=== PATIENT | female | born 1950 | race Caucasian/White ===

== ENCOUNTER 2018-12-07 13:30 | Outpatient (CLI) | payer MEDICARE ==
--- NOTE | 2018-12-07 15:53 | MRI ---
MRI OF LUMBAR SPINE PERFORMED WITHOUT CONTRAST ENHANCEMENT: History: Low back pain for the past few months. Pain going down to the left leg, also with some right foot numbness. FINDINGS: The vertebral bodies are normal in height. Generalized disc desiccation changes are present. There is marked disc narrowing at L5-S1. There is no significant periaortic adenopathy. A T2 hyperintense lesion involving the left kidney is statistically most likely a cyst. T12-L1: Unremarkable. L1-2: Degenerative facet changes without canal or foraminal stenosis. L2-3: No significant canal or foraminal stenosis. L3-4: The canal is mildly stenotic. This related to facet and ligamentous hypertrophic changes. No si gnificant foraminal narrowing. L4-5: There is a moderate degree of canal stenosis with some disc bulge and element of a right parace ntral protrusion, also contributing to the canal narrowing. There is some mild to moderate right fora aurora narrowing and mild left foraminal stenosis. L5-S1: No significant central canal stenosis. Degenerative facet changes are present without signific ant canal or foraminal narrowing. A left lateral annular disc tear is incidentally seen. IMPRESSION: 1. Mild to moderate degree of canal narrowing at L3-4 with a moderately severe canal stenosis at L4-5 , mainly related to chronic degenerative facet and ligamentous hypertrophic changes. There is some di sc bulging and a right paracentral to slightly more lateral disc protrusion and bilateral foraminal n arrowing. Other findings as discussed above. POS: TPC
== END 2018-12-07 13:31 | disposition home or self-care (01) ==
LOC: BICMRI 13:30
PROVIDERS: ATTEND Family Medicine
DX: M47.26 Other spondylosis with radiculopathy, lumbar region (principal); M48.061 Spinal stenosis, lumbar region without neurogenic claudication; M51.16 Intervertebral disc disorders with radiculopathy, lumbar region
CPT/HCPCS: 72148

== ENCOUNTER 2019-12-24 10:40 | Outpatient (CLI) | payer MEDICARE ==
--- NOTE | 2019-12-24 11:51 | MRI ---
MRI lumbar spine noncontrast: HISTORY: Low back pain, for many years. Patient has previous fall. Patient has had pain management but worseni ng symptoms, radiculopathy in the left leg COMPARISON: 12/07/2018 FINDINGS: Stable straightening of lumbar lordosis. Appropriate T1 marrow signal intensity of the lumbar vertebr a. Lumbar spine vertebral body height is maintained. No fracture. No significant STIR hyperintensity to suggest vertebral body edema or ligamentous injury Appropriate signal intensity paraspinal muscles. Bilateral parapelvic cyst along with left renal julia ical cysts. Conus medullaris terminates at the mid T12 level. T12-L1:Adequate disc hydration. No significant neural canal stenosis or significant neural foraminal narrowing L1-L2:Adequate disc hydration. Minimal loss of disc space height. Minimal broad-based disc bulge, wit hout significant central canal stenosis. Mild bilateral foraminal narrowing due to disc material L2-L3:Adequate disc hydration. No posterior disc abnormality. No significant central canal stenosis. Bilaterally the neural foramina are patent. L3-L4:Adequate disc hydration. Broad-based disc bulge, ligament flavum thickening and facet hypertrop hy result in moderate central canal stenosis. There is disc material encroaching upon bilateral subarticular zones. Mass effect without obscuration of bilateral traversing L4 nerve roots. Bilateral ly the neural foramina are patent. L4-L5:Desiccation without significant loss of disc space height. Broad-based disc bulge, ligament fla vum thickening and facet hypertrophy result in moderate central canal stenosis. Partial obscuration of bilateral traversing L5 nerve root secondary to disc material and to lesser extent posterior eleme nt hypertrophy. Moderate bilateral foraminal narrowing. L5-S1:Severe loss of disc space height. No significant central canal stenosis. Mild bilateral neural foraminal narrowing. IMPRESSION: 1. Trim change at L3-L4 with moderate central canal stenosis. Disc material encroaches upon bilateral subarticular zones. Mass effect upon bilateral traversing L4 nerve roots. 2. Partial obscuration of bilateral traversing L5 nerve root secondary to narrowing of the subarticul ar zone due to disc material and to lesser extent posterior elements hypertrophy.
--- NOTE | 2019-12-24 11:59 | RAD ---
XR Thoracic Spine 2 View HISTORY: Low back pain for years status post fall in the past. No recent injury as described. COMPARISON: None. FINDINGS: The vertebral bodies maintain normal height. Small osteophytes are seen along the course of the spine. Pedicles are intact. IMPRESSION: Arthritic changes of the spine.
--- NOTE | 2019-12-24 12:00 | RAD ---
XR Lumbar Spine Bending Min 4V HISTORY: Back pain for years status post fall. COMPARISON: None. FINDINGS: The bones appear demineralized. Vertebral bodies are normal in height. Mild disc narrowing is seen at L1-2 and moderate disc narrowing at L5-S1. Also mild disc narrowing is seen at L4-5. No abnormal motion in the flexion or extension views. IMPRESSION: Arthritic changes of the spine.
== END 2019-12-24 10:41 | disposition home or self-care (01) ==
LOC: TBSIIMAG 10:40
PROVIDERS: ATTEND Surgery
DX: M51.36 Other intervertebral disc degeneration, lumbar region (principal); M79.606 Pain in leg, unspecified; M25.559 Pain in unspecified hip; M46.96 Unspecified inflammatory spondylopathy, lumbar region; M46.94 Unspecified inflammatory spondylopathy, thoracic region; M48.061 Spinal stenosis, lumbar region without neurogenic claudication; R93.7 Abnormal findings on diagnostic imaging of other parts of musculoskeletal system
CPT/HCPCS: 72070; 72120; 72148

== ENCOUNTER 2020-03-24 07:05 | Outpatient (CLI) | payer MEDICARE, MEDICAID, OTHER ==
[2020-03-24 12:41] LABS: PTT 28.3 SEC (22.9-36.1); Prothrombin Time 12.8 sec (12.0-14.7)
[2020-03-24 12:49] LABS: Hemoglobin 13.7 g/dL (12.0-16.0); Mean Corpuscular HGB CONC 33.1 g/dL (32.0-36.0); Mean Corpuscular Hemoglobin 31.4 pg (27.0-31.0); Mean Corpuscular Volume 94.9 fL (78.0-98.0); Mean Platelet Volume 9.2 fL (7.4-10.4); Platelet Count 80 thou/uL (130-400); RBC Distribution Width 13.5 % (11.5-14.5); Red Blood Cell (RBC) Count 4.36 mill/uL (4.20-5.40); White Blood Cell (WBC) Count 4.1 thou/uL (4.8-10.8)
[2020-03-24 12:53] LABS: Anion Gap 11 mmol/L (10-20); BUN (Urea Nitrogen) 11 mg/dL (9.8-20.1); Calc. Creatinine Clearance 0 mL/min (70-130); Calcium 9.2 mg/dL (7.8-10.44); Carbon Dioxide 23 mmol/L (23-31); Chloride 109 mmol/L (98-107); Estimated GFR-MDRD Greater than 90; Glucose 94 mg/dL (80-115); Potassium 3.9 mmol/L (3.5-5.1); Sodium 139 mmol/L (136-145)
[2020-03-24 17:39] LABS: SARS-CoV-2 MS2 Positive; SARS-CoV-2 N Gene Negative; SARS-CoV-2 S Gene Negative; SARS-CoV-2 orf1ab Negative
--- NOTE | 2020-03-24 21:13 | EKG ---
Test Reason : Blood Pressure : / mmHG Vent. Rate : 066 BPM Atrial Rate : 066 BPM P-R Int : 152 ms QRS Dur : 074 ms QT Int : 414 ms P-R-T Axes : 065 073 063 degrees QTc Int : 434 ms Normal sinus rhythm Normal ECG No previous ECGs available Confirmed by Fely SPARKS ([id number]) on 03/24/2020 9:13:15 PM Referred By: BRET Confirmed By:Fely SPARKS
== END 2020-03-24 07:06 | disposition home or self-care (01) ==
LOC: LABBT 07:05
PROVIDERS: ATTEND Surgery
DX: Z01.818 Encounter for other preprocedural examination (principal); Z11.59 Encounter for screening for other viral diseases; M54.16 Radiculopathy, lumbar region; M48.062 Spinal stenosis, lumbar region with neurogenic claudication
CPT/HCPCS: 80048; 85027; 85610; 85730; 93005; U0003; 87635; 93010

== ENCOUNTER 2020-03-26 05:36 | Inpatient (IN) | payer MEDICARE, MEDICAID ==
[2020-03-26] MEDS ORDERED: Thrombin 5000 UNITS/5 ML VIAL ONE ×2 (06:32→08:39)
[2020-03-26] MEDS ORDERED: Fentanyl 100 MCG/2 ML VIAL ONE ×4 (06:32→10:51)
[2020-03-26] MEDS ORDERED: Midazolam HCl 2 mg/2 ml Vial ONE (07:29)
[2020-03-26] MEDS ORDERED: Fleet Enema 133 ML BOT PR PRN (10:10)
[2020-03-26] MEDS ORDERED: Acetaminophen 325 MG TAB PO PRN (10:10)
[2020-03-26] MEDS ORDERED: Milk Of Magnesia 30 ML UDCUP PO PRN (10:10)
[2020-03-26] MEDS ORDERED: Bisacodyl 10 MG SUPP PR PRN (10:10)
[2020-03-26] MEDS ORDERED: Ondansetron PF 4 MG/2 ML Vial IVP PRN (10:10)
[2020-03-26] MEDS ORDERED: Acetaminophen/Codeine 30-300mg Tablet PO PRN (10:10)
[2020-03-26] MEDS ORDERED: Mag-Al 1200 mg/1200 mg/30 ML UDCUP PO PRN (10:10)
[2020-03-26] MEDS ORDERED: Ondansetron HCl/PF 4 MG/2 ML Vial IVP PRN (10:13)
[2020-03-26] MEDS ORDERED: HYDROmorphone 2 MG/ML VIAL SLOW IVP PRN (10:13)
[2020-03-26] MEDS ORDERED: Morphine Sulfate 2 MG/ML SYRINGE SLOW IVP PRN (10:13)
[2020-03-26] MEDS ORDERED: Promethazine HCl 25 MG/ML VIAL IM PRN (10:13)
[2020-03-26] MEDS ORDERED: PACU-Morphine 4MG/ML VIAL SLOW IVP PRN (10:13)
[2020-03-26] MEDS ORDERED: Promethazine HCl 25 MG/ML VIAL SLOW IVP PRN (10:13)
[2020-03-26] MEDS ORDERED: Meperidine HCl/PF 25 MG/ML VIAL SLOW IVP PRN (10:13)
--- NOTE | 2020-03-26 11:41 | OP ---
DATE OF PROCEDURE: 03/26/2020 [employer] SPECIALIST: Julieta Lancaster PA-C LOCATION: OR 12. WOUND CLASSIFICATION: Type 1 wound. PREPROCEDURE DIAGNOSIS: Lumbar stenosis with low back and leg pain consistent with lumbar neurogenic claudication. POSTPROCEDURE DIAGNOSIS: Lumbar stenosis with low back and leg pain consistent with lumbar neurogenic claudication. PROCEDURE PERFORMED: L3-L4, L4-L5 laminectomies, partial facetectomies, and foraminotomies. DESCRIPTION OF PROCEDURE: After informed consent was obtained from the patient, the patient was brought to the OR. Proper patient, pause, and identification were carried out. She was placed under excellent endotracheal anesthesia and positioned prone on the OR table. All appropriate points were padded. A midline linear yfn was made over the L3 through L5 segment and this region was sterilely cleansed, prepared and draped. Proper patient, pause, and identification were carried out. The wound was then opened with combination of sharp, monopolar, and blunt dissection. The L3-L4, L4-L5 spinous processes and lamina were exposed. Localization film confirmed area of interest. We then performed L3-L4, L4-L5 laminectomies, partial facetectomies, and foraminotomies. We had excellent decompression of the common dural tube and then we were satisfied with our L3 through L5 decompression and the wound was then copiously irrigated. Hemostasis was maximized throughout and the wound was closed in anatomic layers. There was no CSF. Job ID: [id number]
[2020-03-26] MEDS: tiZANidine HCl 4 MG TAB PO PRN ×2 (13:06→21:45)
[2020-03-26] MEDS ORDERED: CEFAZOLIN 2 GM in Premix Bag 1 BAG IVPB SCH (14:00)
[2020-03-26 14:53] VITALS: BMI 42.9
[2020-03-26] MEDS ORDERED: PROPOFOL 200 MG/20 ML VIAL ONE (15:38)
[2020-03-26] MEDS ORDERED: Glycopyrrolate 0.2 MG/ML 5 ML SYRINGE ONE (15:38)
[2020-03-26] MEDS ORDERED: PHENYLEPHRINE-NS 100 MCG/ML 10 ML SYRINGE ONE (15:38)
[2020-03-26] MEDS ORDERED: Dexamethasone 20 MG/5 ML VIAL ONE (15:38)
[2020-03-26] MEDS ORDERED: Rocuronium Bromide 10 MG/ML (10ML VIAL) ONE (15:38)
[2020-03-26] MEDS ORDERED: Ondansetron PF 4 MG/2 ML Vial ONE (15:38)
[2020-03-26] MEDS ORDERED: Lidocaine 1% PF 5 ML VIAL ONE (15:38)
[2020-03-26] MEDS ORDERED: EPHEDRINE 25 MG/5 ML SYRINGE ONE (15:38)
[2020-03-26] MEDS: HYDROcodone/Acetaminophen 7.5/325 mg Tablet PO PRN ×2 (17:25→22:47)
[2020-03-26] MEDS: Furosemide 20 MG TAB PO SCH (17:26)
[2020-03-26] MEDS: Sodium Chloride 0.9% 1,000 ML IV SCH ×2 (17:27→21:49)
[2020-03-27] MEDS ORDERED: CEFAZOLIN 2 GM in Premix Bag 1 BAG IVPB SCH (01:00)
[2020-03-27] MEDS: Morphine 2 MG/ML SYRINGE SLOW IVP PRN ×3 (01:23→11:16)
[2020-03-27] MEDS: tiZANidine HCl 4 MG TAB PO PRN ×3 (05:50→19:19)
[2020-03-27 07:30] LABS: #Lymphocytes 0.9 thou/uL (1.20-3.40); #Monocytes 0.5 thou/uL (0.11-0.59); #Neutrophils 4.2 thou/uL (1.40-6.50); %Basophils 0.4 % (0.0-1.0); %Eosinophils 0.2 % (0.0-10.0); %Lymphocytes 16.4 % (21.0-51.0); %Monocytes 9.2 % (0.0-10.0); %Neutrophils 73.7 % (42.0-75.0); Hemoglobin 11.5 g/dL (12.0-16.0); Mean Corpuscular Hemoglobin 31.5 pg (27.0-31.0); Mean Corpuscular Volume 95.7 fL (78.0-98.0); Mean Platelet Volume 9.1 fL (7.4-10.4); Platelet Count 81 thou/uL (130-400); RBC Distribution Width 13.3 % (11.5-14.5); Red Blood Cell (RBC) Count 3.65 mill/uL (4.20-5.40); White Blood Cell (WBC) Count 5.7 thou/uL (4.8-10.8)
[2020-03-27 07:36] LABS: Anion Gap 11 mmol/L (10-20); BUN (Urea Nitrogen) 9 mg/dL (9.8-20.1); Calc. Creatinine Clearance 171 mL/min (70-130); Calcium 8.5 mg/dL (7.8-10.44); Carbon Dioxide 24 mmol/L (23-31); Chloride 109 mmol/L (98-107); Estimated GFR-MDRD Greater than 90; Glucose 133 mg/dL (80-115); Potassium 4.2 mmol/L (3.5-5.1); Sodium 140 mmol/L (136-145)
[2020-03-27] MEDS ORDERED: Cepastat Lozenges 1 LOZ PO PRN (08:04)
[2020-03-27] MEDS: HYDROcodone/Acetaminophen 7.5/325 mg Tablet PO PRN ×3 (08:18→17:47)
[2020-03-27] MEDS: Furosemide 20 MG TAB PO SCH ×2 (08:21→14:09)
[2020-03-27 08:48] LABS: MDiff Complete? YES
[2020-03-27] MEDS ORDERED: Losartan 25 MG TAB PO SCH ×3 (09:00→21:00)
--- NOTE | 2020-03-27 11:07 | PRG ---
DATE OF SERVICE: 03/27/2020 Ms. June is doing well postoperative day 1 from lumbar laminectomy. Her platelet count is 81, we will give her one more six-pack given her postoperative nature. She inpatient rehab. Her leg pain has resolved and she is even moving her right leg better. We will plan for inpatient rehab. Job ID: [id number]
[2020-03-27] MEDS: Sodium Chloride 0.9% 1,000 ML IV SCH (11:11)
[2020-03-27 19:05] VITALS: BP 137/68; TEMP 97.7
== END 2020-03-27 20:40 | DRG 517 ==
LOC: SDC 05:36 → T4-B 10:14 → SDC 12:47 → T4-B 12:48
PROVIDERS: ADMIT Surgery; ATTEND Surgery
PROC: 01NB0ZZ Release Lumbar Nerve, Open Approach (ICD-10-PCS; principal; 2020-03-26)
DX: M48.062 Spinal stenosis, lumbar region with neurogenic claudication (principal); M54.16 Radiculopathy, lumbar region; I10 Essential (primary) hypertension; J30.2 Other seasonal allergic rhinitis; M19.90 Unspecified osteoarthritis, unspecified site; F32.9 Major depressive disorder, single episode, unspecified; Z20.828 Contact with and (suspected) exposure to other viral communicable diseases; Z11.59 Encounter for screening for other viral diseases; Z88.1 Allergy status to other antibiotic agents; Z90.710 Acquired absence of both cervix and uterus; Z88.5 Allergy status to narcotic agent; Z87.891 Personal history of nicotine dependence; Z01.818 Encounter for other preprocedural examination
CPT/HCPCS: 36415; 36430; 76000; 80048; 85025; 85027; 85610; 85730; 86850; 86900; 86901; 87635; 93005; J0690; J1100; J2001; J2250; J2270; J2405; J2704; J3010; J3370; P9035; U0003

== ENCOUNTER 2024-09-11 11:59 | Outpatient (CLI) | payer MEDICARE | END 2024-09-11 12:00 | disposition home or self-care (01) | LOC: SCSRAD 11:59 | PROVIDERS: ATTEND Family Medicine | DX: J45.909 Unspecified asthma, uncomplicated (principal) | CPT/HCPCS: 71046 ==